=== PATIENT | female | born 1940 | race Caucasian/White ===

== ENCOUNTER → 2017-10-17 07:36 | Outpatient (CLI) | payer OTHER, SELFPAY ==
--- NOTE | 2017-10-17 07:46 | ECHOD_ITS ---
Reason For Study: AVR Left Ventricle Normal size and thickness. The estimated ejection fraction is 60 %. Stage 2 diastolic dysfunction. No regional wall motion abnormalities noted. Right Ventricle Normal size and thickness. Normal systolic function. Atria The left atrium is severely enlarged. Normal right atrium. Normal atrial septum. Mitral Valve The mitral valve is structurally normal. No prolapse or stenosis seen. Tricuspid Valve Normal tricuspid valve. Moderate (2+) tricuspid valve insufficiency. Right ventricular systolic pressure estimated to be 39 mmHg. Mild pulmonary hypertension. Aortic Valve Peak aortic valve gradient 17 mmHg. Mean aortic valve gradient 9 mmHg. Trivial aortic valve insufficiency. Bioprosthetic aortic valve. Pulmonic Valve Normal pulmonic valve. Great Vessels Normal aortic root. Normal arch. Normal inferior vena cava. Inferior vena cava collapse with sniff. Pericardium/Pleural No pericardial effusion. MMode/2D Measurements & Calculations LVIDd: 4.5 cm IVSd: 0.81 cm LVOT diam: 2.0 cm LVIDs: 3.1 cm LVPWd: 0.77 cm LVOT area: 3.0 cm2 RVDd: 3.7 cm FS: 31.3 % Ao root diam: 2.5 cm LAV(MOD-bp): 76.0 ml LA dimension: 4.1 cm LAV(MOD-bp) Indexed: 40.2 ml/m2 LA A4 area: 25.1 cm2 LAV(MOD-sp2): 74.6 ml LAV(MOD-sp4): 77.5 ml RA A4 area: 15.1 cm2 Doppler Measurements & Calculations MV E max goran: 95.5 cm/sec Lat Peak E' Goran: 11.1 cm/sec Med Peak E' Goran: 8.3 cm/sec MV A max goran: 51.5 cm/sec E/E' lat: 8.6 E/E' med: 11.6 MV E/A: 1.9 Ao V2 max: 203.4 cm/sec AI max goran: 398.0 cm/sec LV V1 max: 124.7 cm/sec Ao max P.7 mmHg AI max P.4 mmHg LV V1 max P.2 mmHg Ao V2 mean: 138.8 cm/sec AI dec slope: 227.2 cm/sec2 LV V1 mean P.6 mmHg Ao mean P.7 mmHg AI P1/2t: 513.1 msec LV V1 mean: 89.8 cm/sec Ao V2 VTI: 50.2 cm LV V1 VTI: 32.4 cm NIHARIKA(I,D): 2.0 cm2 NIHARIKA(V,D): 1.9 cm2 SV(LVOT): 98.3 ml PA V2 max: 105.7 cm/sec TR max goran: 267.3 cm/sec TR max P.7 mmHg Interpretation Summary The estimated ejection fraction is 60 %. Stage 2 diastolic dysfunction. The left atrium is severely enlarged. Moderate (2+) tricuspid valve insufficiency. Right ventricular systolic pressure estimated to be 39 mmHg. Mild pulmonary hypertension. Normal functioning bioprosthetic aortic valve. Trivial aortic valve insufficiency. Compared to echo report dated 06/05/2017, no appreciable changes noted. Ordering Physician: Brent Stanford Referring Physician: REYNALDO BOB Performed By: Jesi North, MEERA, RVT
== END ==
PROVIDERS: Family Provider Family Medicine; PCP Family Medicine; Visit Provider Internal Medicine Cardiovascular Disease
DX: I47.1 Supraventricular tachycardia (principal); I10 Essential (primary) hypertension; Z95.2 Presence of prosthetic heart valve; Z86.79 Personal history of other diseases of the circulatory system
CPT/HCPCS: 93306

== ENCOUNTER → 2019-01-28 | Outpatient (CLI) | payer SELFPAY ==
[2018-09-18 11:30] VITALS: BMI 34.3
--- NOTE | 2019-01-28 06:34 | CT_ITS ---
STUDY: CT RIGHT SHOULDER REASON FOR EXAM: Female, 78 years old. Recurring right shoulder dislocation. RADIATION DOSAGE (If Supplied By Facility): CTDIvol = ( 28.47 ) mGy, DLP = ( 729.25 ) mGycm TECHNIQUE: The patient was scanned in a multi detector CT scanner. High resolution transaxial imaging was performed without the administration of intravenous contrast material. Sagittal and coronal images were reconstructed. Individualized dose optimization techniques were used for this CT. COMPARISON: None. 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 Normal glenoid rim, neck and visualized scapula. Normal humeral head, neck and tuberosities. Decreased distance between the humeral head and acromion. This is in keeping with a rotator cuff injury. Normal coracoid process. Normal visualized lateral clavicle. Normal acromioclavicular articulation. There is a Type II morphology (curved), with a neutral orientation. Normal visualized muscles and soft tissue structures. CT/Extremity Upper without Contra IMPRESSION: Decreased distance between the acromion and the humeral head in keeping with rotator cuff pathology. Mild degree of joint space narrowing of the glenohumeral joint. Electronically Signed: Ralf Delaney, at 13:58 EDT , Service support ,
== END | disposition home or self-care (01) ==
LOC: CT 06:31
PROVIDERS: Family Provider Family Medicine; PCP Family Medicine; Referring Provider Specialist; Visit Provider Specialist
DX: M24.411 Recurrent dislocation, right shoulder (principal)
CPT/HCPCS: 73200

== ENCOUNTER → 2019-04-21 14:48 | Outpatient (CLI) | payer SELFPAY, OTHER ==
[2019-04-13 13:18] VITALS: BMI 34.3
--- NOTE | 2019-04-21 14:52 | ECHOD_ITS ---
Reason For Study: Aortic Valve Replacement Procedure This was a 2D Doppler, Color Flow transthoracic echocardiogram. Exam performed in department. Left Ventricle Normal size and thickness. The estimated ejection fraction is 65 %. Stage 2 diastolic dysfunction. No regional wall motion abnormalities noted. Right Ventricle Mildly dilated right ventricle. Normal systolic function. Atria The left atrium is mildly enlarged. Normal right atrium. Normal atrial septum. Mitral Valve The mitral valve is structurally normal. No prolapse or stenosis seen. Tricuspid Valve Normal tricuspid valve. Mild to moderate (1-2+) tricuspid valve insufficiency. Right ventricular systolic pressure estimated to be 37 mmHg. Aortic Valve Peak aortic valve gradient 26 mmHg. Mean aortic valve gradient 11 mmHg. Stable appearing bioprosthetic aortic valve apparatus. Pulmonic Valve Normal pulmonic valve. Great Vessels Normal aortic root. Normal arch. Normal inferior vena cava. Inferior vena cava collapse with sniff. Pericardium/Pleural No pericardial effusion. MMode/2D Measurements & Calculations LVIDd: 4.2 cm IVSd: 1.0 cm LVOT diam: 2.0 cm LVIDs: 2.8 cm LVPWd: 0.87 cm LVOT area: 3.1 cm2 RVDd: 4.0 cm FS: 34.2 % Ao root diam: 2.8 cm LAV(MOD-bp): 71.2 ml LA A4 area: 21.5 cm2 LA dimension: 3.9 cm LAV(MOD-bp) Indexed: 36.6 ml/m2 LAV(MOD-sp2): 76.3 ml LAV(MOD-sp4): 64.3 ml RA A4 area: 15.2 cm2 Time Measurements MV dec time: 0.18 sec Doppler Measurements & Calculations MV E max goran: 86.3 cm/sec Lat Peak E' Goran: 13.3 cm/sec Med Peak E' Goran: 7.9 cm/sec MV A max goran: 71.2 cm/sec E/E' lat: 6.5 E/E' med: 11.0 MV E/A: 1.2 MV V2 max: 103.4 cm/sec MV P1/2t max goran: 104.9 cm/sec Ao V2 max: 252.4 cm/sec MV max P.3 mmHg MV P1/2t: 74.3 msec Ao max P.5 mmHg MV V2 mean: 54.7 cm/sec MV dec slope: 413.7 cm/sec2 Ao V2 mean: 153.8 cm/sec MV mean P.4 mmHg Ao mean P.2 mmHg MV V2 VTI: 26.2 cm MVA(P1/2t): 3.0 cm2 Ao V2 VTI: 53.1 cm MVA(VTI): 3.5 cm2 NIHARIKA(I,D): 1.7 cm2 NIHARIKA(V,D): 1.7 cm2 LV V1 max: 140.8 cm/sec SV(LVOT): 92.0 ml PA V2 max: 110.7 cm/sec LV V1 max P.9 mmHg LV V1 mean P.5 mmHg LV V1 mean: 85.8 cm/sec LV V1 VTI: 30.1 cm TR max goran: 283.1 cm/sec TR max P.0 mmHg Interpretation Summary The estimated ejection fraction is 65 %. Stage 2 diastolic dysfunction. Mildly dilated right ventricle. The left atrium is mildly enlarged. Mild to moderate (1-2+) tricuspid valve insufficiency. Right ventricular systolic pressure estimated to be 37 mmHg. Stable appearing and normal functioning bioprosthetic aortic valve apparatus. Peak aortic valve gradient 26 mmHg. Mean aortic valve gradient 11 mmHg. Compared to echo report dated 10/17/2017, no appreciable changes noted. Ordering Physician: Brent Stanford Referring Physician: Brent Stanford Performed By: Donovan Armando RCS
== END ==
PROVIDERS: Family Provider Family Medicine; PCP Family Medicine; Referring Provider Internal Medicine Cardiovascular Disease; Visit Provider Internal Medicine Cardiovascular Disease
DX: Z95.2 Presence of prosthetic heart valve (principal); I47.1 Supraventricular tachycardia; I10 Essential (primary) hypertension
CPT/HCPCS: 93306

== ENCOUNTER → 2020-06-23 07:38 | Outpatient (CLI) | payer SELFPAY, OTHER ==
[2020-06-10 08:47] VITALS: BMI 34.0
--- NOTE | 2020-06-23 07:40 | ECHOD_ITS ---
Reason For Study: DYSPNEA/SOB Procedure This was a 2D Doppler, Color Flow transthoracic echocardiogram. The exam was of adequate technical quality. Exam performed in department. Left Ventricle Normal LV size. Left ventricular systolic function is normal. The estimated ejection fraction is 65 %. Diastolic function is indeterminate. No regional wall motion abnormalities noted. Right Ventricle Normal RV size. Normal systolic function. Atria The left atrium is mildly enlarged. The right atrium is mildly enlarged. Color Doppler study suggestive of a left to right interatrial shunt compatible with an underlying ASD. Mitral Valve There is no mitral annular calcification. Normal mitral valve. Trivial mitral valve insufficiency. Tricuspid Valve Normal tricuspid valve. Mild to moderate (1-2+) tricuspid valve insufficiency. Right ventricular systolic pressure estimated to be 32 mmHg. Aortic Valve Stable appearing bioprosthetic aortic valve apparatus. Trivial transvalvular insufficiency of the aortic valve. Pulmonic Valve The pulmonic valve is not well visualized. Great Vessels Normal sized aortic root. Pericardium/Pleural No pericardial effusion. Medication Attempted bubble study but unable to obtain IV access. MMode/2D Measurements & Calculations LVIDd: 3.2 cm IVSd: 1.1 cm LVOT diam: 2.0 cm LVIDs: 2.2 cm LVPWd: 1.1 cm RVDd: 3.6 cm FS: 30.7 % LVOT area: 3.1 cm2 Ao root diam: 3.0 cm LAV(MOD-bp): 69.5 ml LVAd ap4: 27.9 cm2 LAV(MOD-bp) Indexed: 35.7 ml/m2 EDV(MOD-sp4): 89.0 ml LAV(MOD-sp2): 77.3 ml EDV(sp4-el): 93.8 ml LAV(MOD-sp4): 52.2 ml LVAs ap4: 16.5 cm2 ESV(MOD-sp4): 38.0 ml ESV(sp4-el): 39.0 ml EF(MOD-sp4): 57.2 % EF(sp4-el): 58.5 % SV(MOD-sp4): 50.9 ml SV(sp4-el): 54.9 ml LA A4 area: 18.3 cm2 LA dimension(2D): 3.7 cm RA A4 area: 15.3 cm2 Time Measurements MV dec time: 0.20 sec Doppler Measurements & Calculations MV E max goran: 95.0 cm/sec Lat Peak E' Goran: 8.7 cm/sec Med Peak E' Goran: 10.6 cm/sec MV A max goran: 59.4 cm/sec E/E' lat: 10.9 E/E' med: 9.0 MV E/A: 1.6 Ao V2 max: 228.9 cm/sec LV V1 max: 131.3 cm/sec SV(LVOT): 94.0 ml Ao max P.0 mmHg LV V1 max P.9 mmHg Ao V2 mean: 152.7 cm/sec LV V1 mean P.1 mmHg Ao mean P.8 mmHg LV V1 mean: 80.5 cm/sec Ao V2 VTI: 52.3 cm LV V1 VTI: 30.7 cm NIHARIKA(I,D): 1.8 cm2 NIHARIKA(V,D): 1.8 cm2 PA V2 max: 108.1 cm/sec TR max goran: 268.9 cm/sec TR max P.9 mmHg Interpretation Summary Left ventricular systolic function is normal. The estimated ejection fraction is 65 %. The left atrium is mildly enlarged. The right atrium is mildly enlarged. Trivial mitral valve insufficiency. Mild to moderate (1-2+) tricuspid valve insufficiency. Stable appearing bioprosthetic aortic valve apparatus. Trivial transvalvular insufficiency of the aortic valve. Right ventricular systolic pressure estimated to be 32 mmHg. Diastolic function is indeterminate. Color Doppler study suggestive of a left to right interatrial shunt compatible with an underlying ASD. Consider further evaluation of intra-atrial septal anatomy and physiology with transesophageal echocardiogram if clinically indicated. Ordering Physician: Sergio Loredo/Diaz Galdamez Referring Physician: REYNALDO BOB Performed By: Yuko Christina RDCS
== END ==
PROVIDERS: PCP Family Medicine; Referring Provider Nurse Practitioner Family; Visit Provider Nurse Practitioner Family
DX: E78.5 Hyperlipidemia, unspecified (principal); R06.00 Dyspnea, unspecified; Z95.2 Presence of prosthetic heart valve
CPT/HCPCS: 93306; A4216

== ENCOUNTER → 2022-10-18 | Outpatient (CLI) | payer SELFPAY, OTHER ==
--- NOTE | 2022-10-18 12:33 | ECHOD_ITS ---
Reason For Study: Valve Replacement Eval Procedure This was a 2D Doppler, Color Flow transthoracic echocardiogram. Exam performed in department. Left Ventricle Normal size and thickness. The left ventricular ejection fraction is 65 %. Normal diastology for age. Right Ventricle Normal right ventricle. Atria The left atrium is mildly enlarged. Normal right atrium. Lipomatous hypertrophy of the atrial septum. Cannot rule out tiny PFO. Mitral Valve Trivial mitral valve insufficiency. Tricuspid Valve Mild tricuspid valve insufficiency. Right ventricular systolic pressure estimated to be 35 mmHg. Aortic Valve Aortic valve mean peak gradient 11.5 mmHg. Essentially unchanged from previous study in 2020. No aortic valve insufficiency. Pericardium/Pleural No pericardial effusion. MMode/2D Measurements & Calculations LVIDd: 4.5 cm IVSd: 0.86 cm LVOT diam: 2.0 cm LVIDs: 2.8 cm LVPWd: 1.0 cm LVOT area: 3.0 cm2 RVDd: 4.2 cm FS: 36.8 % LA dimension: 4.3 cm LAV(MOD-bp): 80.5 ml LVAd ap4: 28.4 cm2 LAV(MOD-bp) Indexed: 41.3 ml/m2 LVLd ap4: 7.2 cm LAV(MOD-sp2): 84.6 ml EDV(MOD-sp4): 88.6 ml LAV(MOD-sp4): 75.2 ml EDV(sp4-el): 95.2 ml LVAs ap4: 14.4 cm2 LVLs ap4: 5.9 cm ESV(MOD-sp4): 28.9 ml ESV(sp4-el): 29.8 ml EF(MOD-sp4): 67.3 % EF(sp4-el): 68.7 % SV(MOD-sp4): 59.7 ml SV(sp4-el): 65.4 ml LA A4 area: 24.0 cm2 TAPSE: 2.0 cm RA A4 area: 16.6 cm2 Time Measurements MV dec time: 0.24 sec Doppler Measurements & Calculations MV E max goran: 87.4 cm/sec Lat Peak E' Goran: 12.0 cm/sec Med Peak E' Goran: 10.3 cm/sec MV A max goran: 76.7 cm/sec E/E' lat: 7.3 E/E' med: 8.5 MV E/A: 1.1 MV V2 max: 100.0 cm/sec MV P1/2t max goran: 100.0 cm/sec Ao V2 max: 238.6 cm/sec MV max P.0 mmHg MV P1/2t: 83.6 msec Ao max P.9 mmHg MV V2 mean: 55.1 cm/sec Ao V2 mean: 158.8 cm/sec MV mean P.4 mmHg MV dec slope: 350.3 cm/sec2 Ao mean P.5 mmHg MV V2 VTI: 30.1 cm MVA(P1/2t): 2.6 cm2 Ao V2 VTI: 53.6 cm AV (velocity ratio): 0.60 MVA(VTI): 3.2 cm2 NIHARIKA(I,D): 1.8 cm2 NIHARIKA(V,D): 1.7 cm2 LV V1 max: 134.9 cm/sec SV(LVOT): 97.0 ml PA V2 max: 102.6 cm/sec LV V1 max P.3 mmHg PA V2 mean: 71.9 cm/sec LV V1 mean P.1 mmHg LV V1 mean: 94.6 cm/sec LV V1 VTI: 32.1 cm TR max goran: 274.3 cm/sec TR max P.1 mmHg ECHO/Echo Complete Interpretation Summary The left ventricular ejection fraction is 65 %. Lipomatous hypertrophy of the atrial septum. Cannot rule out tiny PFO. Mild tricuspid valve insufficiency. Aortic valve mean peak gradient 11.5 mmHg. No significant change from previous study in 2020. Ordering Physician: Diaz Galdamez Referring Physician: Maryse Cisse Performed By: Donovan Armando RCS
== END | disposition home or self-care (01) ==
LOC: CVS 12:32
PROVIDERS: PCP Family Medicine; Referring Provider Internal Medicine Cardiovascular Disease; Visit Provider Internal Medicine Cardiovascular Disease
DX: I47.1 Supraventricular tachycardia (principal); I10 Essential (primary) hypertension; E78.5 Hyperlipidemia, unspecified
CPT/HCPCS: 93306